=== PATIENT | male | born 1945 | race American Indian/Alaskan Native ===

== ENCOUNTER 2022-04-18 08:14 | Outpatient (CLI) | payer MEDICARE ==
--- NOTE | 2022-04-18 10:02 | Cat Scan Report ---
CT HEAD WITHOUT CONTRAST INDICATION / CLINICAL INFORMATION: R42. TECHNIQUE: Axial imaging performed from the skull apex through the skull base without the use of cont rast. Sagittal and coronal reformatted images. All CT scans at this location are performed using CT dose reduction for ALARA by means of automated exposure control. COMPARISON: None available. FINDINGS: CEREBRAL PARENCHYMA: No acute parenchymal abnormality. No chronic infarct. Mild diffuse cortical volu me loss and mild chronic microvascular ischemic changes in the white matter are noted and appear appr opriate for this person's age. HEMORRHAGE: None. EXTRA-AXIAL SPACES: Normal in size and morphology for the patient's age. VENTRICULAR SYSTEM: Normal in size and morphology for the patient's age. MIDLINE SHIFT OR HERNIATION: None. CEREBELLUM / BRAINSTEM: No significant abnormality. CALVARIUM: No significant abnormality. ORBITS: Normal as visualized. PARANASAL SINUSES / MASTOID AIR CELLS: There is mild mucosal thickening in the posterior ethmoid air cells. The remaining sinuses are clear. SOFT TISSUES of HEAD: No significant abnormality. ADDITIONAL FINDINGS: None. IMPRESSION: No acute intracranial abnormality. Signer Name: Andres Beauchamp Jr, MD Signed: 04/18/2022 9:57 AM Workstation Name: [id number]
== END 2022-04-18 08:15 | disposition home or self-care (01) ==
LOC: CT 08:14
PROVIDERS: ATTEND Physician Assistant
DX: I67.82 Cerebral ischemia (principal); R42 Dizziness and giddiness; R10.9 Unspecified abdominal pain; R06.02 Shortness of breath; R90.82 White matter disease, unspecified
CPT/HCPCS: 70450